=== PATIENT | male | born 1990 | race Caucasian/White ===

== ENCOUNTER 2018-05-05 17:27 | Observation (INO) | payer BC ==
[~2018-05-05] VITALS: Ht 170.2 cm; Wt 107.0 kg
[~2018-05-05 17:27] MED LIST: HYDR-3165 PO; PENI250T85 PO
[2018-05-05] MEDS ORDERED: ASPIRIN 81 MG TAB.CHEW PO ONE (17:45)
--- NOTE | 2018-05-05 17:52 | PHYS DOC ---
Past History Past Medical History: No Pertinent History Past Surgical History: No Surgical History Alcohol Use: None Drug Use: None Adult General Chief Complaint Chief Complaint: CHEST PAIN [facility] HPI Patient is a 27 year old male who presents with chest pain. Patient complaining of intermittent episodes of substernal chest pain for 2 months that usually happens once a day up to twice a week and last for minutes to hours as a sharp pain with radiation to his back and associated with shortness of breath, palpitation, dizziness and left arm numbness without nausea and vomiting, fever and chills, cough and congestion. Patient was seen by his primary care physician today and had order for mild pain test and had prescription of nitro. Patient complaining of another episode of chest pain that started about 30 minutes prior to arrival to ER and rated his pain 7/10. Patient wanted to take his nitroglycerin but his mother instructed to come to emergency room because he did not exact direction of using nitroglycerin. Patient rated his pain 2/10 at arrival to ER. And was diagnosed with hypertension today and chewing tobacco and has family history of CAD and denies using drugs or alcohol. Review of Systems Review of Systems Constitutional: Denies fever or chills [] Eyes: Denies change in visual acuity, redness, or eye pain [] HENT: Denies nasal congestion or sore throat [] Respiratory: Denies cough, reports shortness of breath [] Cardiovascular: No additional information not addressed in HPI [] GI: Denies abdominal pain, nausea, vomiting, bloody stools or diarrhea [] : Denies dysuria or hematuria [] Musculoskeletal: Denies back pain or joint pain [] Integument: Denies rash or skin lesions [] Neurologic: Denies headache, focal weakness or sensory changes [] Endocrine: Denies polyuria or polydipsia [] All other systems were reviewed and found to be within normal limits, except as documented in this note. Physical Exam Physical Exam Constitutional: Well developed, well nourished, mild distress, non-toxic appearance. [] HENT: Normocephalic, atraumatic, oropharynx moist, no oral exudates, nose normal. [] Eyes: PERRLA, EOMI, conjunctiva normal, no discharge. [] Neck: Normal range of motion, no tenderness, supple, no stridor. [] Cardiovascular:Heart rate regular rhythm, no murmur [] Lungs & Thorax: Bilateral breath sounds clear to auscultation [] Abdomen: Bowel sounds normal, soft, no tenderness, no masses, no pulsatile masses. [] Skin: Warm, dry, no erythema, no rash. [] Back: No tenderness, no CVA tenderness. [] Extremities: No tenderness, no cyanosis, no clubbing, ROM intact, no edema. [] Neurologic: Alert and oriented X 3, normal motor function, normal sensory function, no focal deficits noted. [] Psychologic: Affect anxious, judgement normal, mood normal. [] Current Patient Data Vital Signs Vital Signs Date Time Temp Pulse Resp B/P (MAP) Pulse Ox O2 Delivery O2 Flow Rate FiO2 05/05/18 19:10 71 18 123/60 (81) 98 Room Air 05/05/18 18:40 72 20 138/71 (93) 98 Room Air 05/05/18 18:10 82 18 132/72 (92) 98 Room Air 05/05/18 17:27 98.3 85 18 99 Room Air Lab Results Laboratory Tests Test 05/05/18 18:15 05/05/18 18:27 White Blood Count 7.1 x10^3/uL Red Blood Count 5.43 x10^6/uL Hemoglobin 15.9 g/dL Hematocrit 46.7 % Mean Corpuscular Volume 86 fL Mean Corpuscular Hemoglobin 29 pg Mean Corpuscular Hemoglobin Concent 34 g/dL Red Cell Distribution Width 13.7 % Platelet Count 263 x10^3/uL Neutrophils (%) (Auto) 50 % Lymphocytes (%) (Auto) 34 % Monocytes (%) (Auto) 10 % Eosinophils (%) (Auto) 4 % Basophils (%) (Auto) 1 % Neutrophils # (Auto) 3.6 x10^3uL Lymphocytes # (Auto) 2.4 x10^3/uL Monocytes # (Auto) 0.7 x10^3/uL Eosinophils # (Auto) 0.3 x10^3/uL Basophils # (Auto) 0.1 x10^3/uL Sodium Level 140 mmol/L Potassium Level 4.1 mmol/L Chloride Level 100 mmol/L Carbon Dioxide Level 31 mmol/L Anion Gap 9 Blood Urea Nitrogen 13 mg/dL Creatinine 1.0 mg/dL Estimated GFR (Cockcroft-Gault) 91.0 BUN/Creatinine Ratio 13 Glucose Level 91 mg/dL Calcium Level 8.9 mg/dL Magnesium Level 2.1 mg/dL Total Bilirubin 0.4 mg/dL Aspartate Amino Transf (AST/SGOT) 21 U/L Alanine Aminotransferase (ALT/SGPT) 39 U/L Alkaline Phosphatase 80 U/L Creatine Kinase 143 U/L Troponin I Quantitative < 0.017 ng/mL PO-Yve-T-Type Natriuretic Peptide 7 pg/mL Total Protein 7.7 g/dL Albumin 4.3 g/dL Albumin/Globulin Ratio 1.3 Lipase 149 U/L Urine Opiates Screen Neg Urine Methadone Screen Neg Urine Barbiturates Neg Urine Phencyclidine Screen Neg Urine Amphetamine/Methamphetamine Neg Urine Benzodiazepines Screen Neg Urine Cocaine Screen Neg Urine Cannabinoids Screen Neg Urine Ethyl Alcohol Neg Current Medications Medications (Trade) Dose Ordered Sig/Tanya Route PRN Reason Start Time Stop Time Status Last Admin Dose Admin Aspirin (Children'S Aspirin) 324 mg 1X ONCE PO 05/05/18 17:45 05/05/18 17:58 DC 05/05/18 17:47 EKG EKG EKG interpreted by me. EKG at 1742 showed normal sinus rhythm at rate of 81, no acute ST and T-wave abnormalities, poor R-wave progress in anteroseptal leads. Radiology/Procedures Radiology/[place] [address] IMAGING REPORT Signed PATIENT: WING RAMOS ACCOUNT: [id number] : 1990 LOCATION: ER AGE: 27 SEX: M EXAM STATUS: REG ER ORD. PHYSICIAN: OSCAR LARA MD REASON: chest pain PROCEDURE: CHEST PA & LATERAL CHEST PA LATERAL dated 05/05/2018 6:50 PM. Comparison: None. Clinical Indication: CHEST PAIN, NO SOA. RECENTLY DIAGNOSED WITH ARYTHMIA. Findings: PA and lateral views of the chest were obtained. Heart and mediastinal contours within normal limits. Lung volumes are low, limiting evaluation. No consolidation or pleural effusion. No pneumothorax. Impression: No acute radiographic abnormality. Electronically signed by: Wing Sumner MD (05/05/2018 6:14 PM) [facility] DICTATED AND SIGNED BY: WING SUMNER MD DATE: 05/05/181812 CC: SULEMA BURTON MD; GERARDO MENESES MD; OSCAR LARA MD ~ [] Course & Med Decision Making Course & Med Decision Making Pertinent Labs and Imaging studies are pending. The patient in ER showed 27-year-old male patient with history of intermittent episodes of chest pain that presented to ER with another episode of chest pain. Patient was anxious. Exam and EKG was unremarkable. Labs and chest x-ray pending. Patient care transferred to Dr. Meneses at 1800. Addendum [address] Dr[address] Gerardo Meneses at 1954: I took over care of patient at 1800. I followed up with the patient's lab work which was negative. The patient's HEART score is 3. In further questioning, the patient does state that he has been experiencing these episodes during physical activity. Patient also notes that he has had a family member at the age of 33 who has been hospitalized for heart- related problems. I spoke with the patient's primary physician, Dr. Burton, and we have agreed the patient would benefit from admission for continued cardiac monitoring and cardiology consult. Dragon Disclaimer Dragon Disclaimer This electronic medical record was generated, in whole or in part, using a voice recognition dictation system. Departure Departure: Impression: Primary Impression: Chest pain Additional Impression: Hypertension Disposition: ADMITTED INPATIENT Admitting Physician: Sulema Burton Condition: STABLE Referrals: SULEMA BURTON MD (PCP) Problem Qualifiers Primary Impression: Chest pain Chest pain type: unspecified Qualified Codes: R07.9 - Chest pain, unspecified Additional Impression: Hypertension Hypertension type: essential hypertension Qualified Codes: I10 - Essential ( primary) hypertension OSCAR LARA MD May 05, 2018 17:52 GERARDO MENESES MD May 05, 2018 19:56
--- NOTE | 2018-05-05 18:17 | RAD ---
CHEST PA LATERAL dated 05/05/2018 6:50 PM. Comparison: None. Clinical Indication: CHEST PAIN, NO SOA. RECENTLY DIAGNOSED WITH ARYTHMIA. Findings: PA and lateral views of the chest were obtained. Heart and mediastinal contours within normal limits. Lung volumes are low, limiting evaluation. No consolidation or pleural effusion. No pneumothorax. Impression: No acute radiographic abnormality. Electronically signed by: Wing Sumner MD (05/05/2018 6:14 PM) [facility]
[2018-05-05 18:32] LABS: BASO # 0.1 x10^3/uL (0.0-0.2); BASO % 1 % (0-3); EOS # 0.3 x10^3/uL (0.0-0.7); EOS % 4 % (0-3); HEMATOCRIT 46.7 % (39.0-53.0); HEMOGLOBIN 15.9 g/dL (13.0-17.5); LYMPH # 2.4 x10^3/uL (1.0-4.8); LYMPH % 34 % (24-48); MEAN CORPUSCULAR HEMOGLOBIN 29 pg (25-35); MEAN CORPUSCULAR HGB CONC 34 g/dL (31-37); MEAN CORPUSCULAR VOLUME 86 fL (79-100); MONO # 0.7 x10^3/uL (0.0-1.1); MONO % 10 % (0-9); NEUT # 3.6 x10^3uL (1.8-7.7); NEUT % 50 % (31-73); PLATELET COUNT 263 x10^3/uL (140-400); RED BLOOD COUNT 5.43 x10^6/uL (4.30-5.70); RED CELL DISTRIBUTION WIDTH 13.7 % (11.5-14.5); WHITE BLOOD COUNT 7.1 x10^3/uL (4.0-11.0)
[2018-05-05 18:56] LABS: BARBITURATES NEG (NEG); BENZODIAZEPINES NEG (NEG); CANNABINOIDS NEG (NEG); COCAINE NEG (NEG); METHADONE NEG (NEG); OPIATES NEG (NEG); PHENCYCLIDINE NEG (NEG)
[2018-05-05 18:56] LABS: ALBUMIN 4.3 g/dL (3.4-5.0); ALBUMIN/GLOBULIN RATIO 1.3 (1.0-1.7); CALCIUM 8.9 mg/dL (8.5-10.1); MAGNESIUM 2.1 mg/dL (1.8-2.4); POTASSIUM 4.1 mmol/L (3.5-5.1); TOTAL BILIRUBIN 0.4 mg/dL (0.2-1.0); TOTAL PROTEIN 7.7 g/dL (6.4-8.2)
[2018-05-05 18:57] LABS: AMPHETAMINE/METHAMPHETAMINE NEG (NEG)
[2018-05-05] MEDS ORDERED: ONDANSETRON PF 4 MG/2 ML VIAL. IV PRN (20:00)
[2018-05-05] MEDS: IV NORMAL SALINE 1,000ML 1,000 ML IV SCH (21:28)
[2018-05-05] MEDS ORDERED: NITR0.4T22 SL (22:02)
[2018-05-05 22:47] VITALS: BP 145/78
[2018-05-05] MEDS ORDERED: LISI-334 PO (23:28)
[2018-05-06 02:07] LABS: BASO # 0.1 x10^3/uL (0.0-0.2); BASO % 1 % (0-3); EOS # 0.3 x10^3/uL (0.0-0.7); EOS % 5 % (0-3); HEMOGLOBIN 15.4 g/dL (13.0-17.5); LYMPH # 2.8 x10^3/uL (1.0-4.8); LYMPH % 39 % (24-48); MEAN CORPUSCULAR HEMOGLOBIN 30 pg (25-35); MEAN CORPUSCULAR HGB CONC 35 g/dL (31-37); MEAN CORPUSCULAR VOLUME 86 fL (79-100); MONO # 0.6 x10^3/uL (0.0-1.1); MONO % 9 % (0-9); NEUT # 3.4 x10^3uL (1.8-7.7); NEUT % 46 % (31-73); PLATELET COUNT 237 x10^3/uL (140-400); RED BLOOD COUNT 5.11 x10^6/uL (4.30-5.70); RED CELL DISTRIBUTION WIDTH 13.1 % (11.5-14.5); WHITE BLOOD COUNT 7.3 x10^3/uL (4.0-11.0)
[2018-05-06 02:22] LABS: CALCIUM 8.1 mg/dL (8.5-10.1); CREATININE 0.9 mg/dL (0.7-1.3); GFR 102.8; POTASSIUM 3.7 mmol/L (3.5-5.1)
[2018-05-06] MEDS: IV NORMAL SALINE 1,000ML 1,000 ML IV SCH (04:43)
[2018-05-06 05:15] VITALS: BP 122/73
[2018-05-06] MEDS ORDERED: ATOR20TA PO (10:24)
[2018-05-06] MEDS ORDERED: PANT40TA3 PO (10:24)
--- NOTE | 2018-05-06 10:46 | EKG ---
[address] [address] Test Date: 2018-05-05 Test Time: 17:42:31 Pat Name: LYNETTE RAMOS Department: Room: 120 A Gender: M Front Line Leader: : 1990 Requested By: OSCAR LARA Order Number: [id number] Reading MD: Gilbert Balderas MD Measurements Intervals [place] Rate: 81 P: 47 RI: 140 QRS: 11 QRSD: 100 T: 25 QT: 346 QTc: 402 Interpretive Statements SINUS RHYTHM Electronically Signed On 05-07-2018 9:26:43 [employer] T[employer]ER by Gilbert Balderas MD
--- NOTE | 2018-05-06 12:18 | DS ---
DATE OF DISCHARGE: 05/06/2018 HOSPITAL COURSE: The patient is a 27-year-old male who came in with substernal chest pain. The patient says he does get it with exertion at times. The patient otherwise is resting fairly comfortably. His cardiac enzymes were negative. Lab work from his outpatient studies does show that he is slightly possibly hypothyroid as well as having a low HDL, elevated triglycerides and a slightly elevated LDL. He has some other risk factors including family history and alike. The patient will be admitted for further evaluation and was admitted and ruled out MT protocol. The patient is already scheduled for an outpatient protocol. He will be on aspirin, Protonix as well as his lisinopril and nitroglycerin. IMPRESSION: Chest pain, unknown etiology, high risk for heart disease, obesity, hypercholesterolemia, hypertriglyceridemia. The patient also encouraged to stop chewing tobacco. SULEMA BURTON MD DR: SAVANNA/tamara JOB#: [id number] / [id number]
== END 2018-05-06 10:45 | disposition home or self-care (01) ==
LOC: ER 17:27 → INTOOBSV 22:00 → 1 SOUTH 22:00
PROVIDERS: ADMIT Family Medicine; ATTEND Family Medicine
DX: R07.2 Precordial pain (principal); N50.819 Testicular pain, unspecified; I10 Essential (primary) hypertension; R42 Dizziness and giddiness; K92.1 Melena; E66.9 Obesity, unspecified; E78.00 Pure hypercholesterolemia, unspecified; E78.1 Pure hyperglyceridemia; F17.220 Nicotine dependence, chewing tobacco, uncomplicated; Z82.49 Family history of ischemic heart disease and other diseases of the circulatory system
CPT/HCPCS: 36415; 71046; 80048; 80053; 80307; 82550; 83690; 83735; 83880; 84484; 85025; 93005; 96360; 96361; 99285; G0378; G0379; J7030

== ENCOUNTER → 2018-05-07 | Outpatient (CLI) | payer BC ==
[2018-05-06 05:15] VITALS: BP 122/73
[~2018-05-07] MED LIST changes: +ATOR20TA PO; +LISI-334 PO; +NITR0.4T22 SL; +PANT40TA3 PO
--- NOTE | 2018-05-07 16:09 | RAD ---
Scrotal ultrasound History: Left scrotal mass and pain. Comparison: None. Technique: Grayscale, color Doppler, and spectral Doppler imaging was performed of the scrotum and contents. Findings: Right testicle measures 4.8 x 2.7 x 2.1 cm. Left testicle measures 4.7 x 2.9 x 2.3 cm. Both testicles have homogeneous echogenicity and are without evidence of mass. Bilateral epididymides have unremarkable appearance. Left varicocele is seen. Both testicles demonstrate normal vascular flow upon Doppler interrogation and are without evidence of torsion. Impression: 1. Left varicocele. 2. No evidence of testicular mass or torsion. Electronically signed by: Wing Christiansen MD (05/07/2018 4:06 PM) [place] [id number]
== END | disposition home or self-care (01) ==
LOC: US 12:29
PROVIDERS: ATTEND Family Medicine
DX: I86.1 Scrotal varices (principal)
CPT/HCPCS: 76870

== ENCOUNTER 2018-06-21 01:42 | Emergency (ER) | payer BC ==
[~2018-06-21] VITALS: Ht 172.7 cm; Wt 99.8 kg
--- NOTE | 2018-06-21 01:53 | PHYS DOC ---
Past History Past Medical History: Hypertension, IBS Past Surgical History: No Surgical History Alcohol Use: Rarely Drug Use: None Adult General Chief Complaint Chief Complaint: FLU SYMPTOM HPI HPI Patient is a 27 year old male who presents with N/V and flu symptom. Pt reports being diagnosed with influenza A two days ago at [facility]. He reports sore throat, sinus tenderness and pressure, headache, dizziness. Pt also mentions about having N/V and diarrhea which also started two days ago. He was not able to keep food or drink down. Pt also reports having some blood-tinged mucus in his sputum and vomitus. He has tried OTC Tylenol and Mucinex which do not relieve his symptoms. Reports positive sick contacts with similar in his children. Reports daughter was seen in ED at [facility] last night. Review of Systems Review of Systems Constitutional: Endorses fever or chills [] Eyes: Denies redness, or eye pain [] HENT: Endorses nasal congestion and sore throat [] Respiratory: Endorses cough and shortness of breath [] Cardiovascular: Denies chest pain or palpitation GI: Endorses nausea, vomiting; denies diarrhea [] : Denies dysuria or hematuria [] Musculoskeletal: Denies back pain or joint pain [] Integument: Denies rash or skin lesions [] Neurologic: Denies headache, focal weakness or sensory changes [] Complete systems were reviewed and found to be within normal limits, except as documented in this note. Allergies Allergies Allergies Coded Allergies Type Severity Reaction Last Updated Verified No Known Drug Allergies 05/05/18 No Physical Exam Physical Exam Constitutional: Well developed, well nourished, no acute distress, non-toxic appearance. [] HENT: Normocephalic, atraumatic, bilateral TMs normal, oropharynx moist, no pharyngeal exudates, mild erythema of the oropharynx, b/l swollen nasal turbinates. [] Eyes: PERRL, EOMI, conjunctiva normal, no discharge. [] Neck: Normal range of motion, no tenderness, supple, no meningeal signs Cardiovascular: Heart rate regular rhythm, no murmur [] Lungs & Thorax: Bilateral breath sounds clear to auscultation [] Abdomen: Soft, no tenderness, no distention or rigidity Skin: Warm, dry, no erythema, no rash. [] Back: No tenderness, no CVA tenderness. [] Extremities: No tenderness, ROM intact [] Neurologic: Alert and oriented X 3, normal motor function, normal sensory function, no focal deficits noted. [] Psychologic: Affect normal, judgement normal, mood normal. [] EKG EKG [] Radiology/Procedures Radiology/Procedures PROCEDURE: CHEST PA & LATERAL Chest PA and lateral: Reason for examination: Cough. Flu diagnosed 2 days ago. Atrial fibrillation. The heart size is normal. Mediastinum is unremarkable. Lung solano are clear. No acute bony abnormalities are seen. Impression: No acute cardiopulmonary disease. Electronically signed by: Cecily Gutiérrez MD (06/21/2018 2:28 AM) [facility] Course & Med Decision Making Course & Med Decision Making Pertinent Labs and Imaging studies reviewed. (See chart for details) Pt with a 27 yo male with presents with URI symptoms and N/V. He was recently diagnosed with Influenza A. Pt reports unable to keep any fluid down this evening. Abdominal: non-peritoneal (no R/R/T). Labs obtained and posted to chart. CXR without acute process. Symptomatic treatment including IV fluids. Pt reports interval improvement during his ED visit. Patient stable for discharge with outpatient follow-up with PCP. Discussed findings and plan with patient and family, who acknowledge understanding and agreement. Dragon Disclaimer Dragon Disclaimer This electronic medical record was generated, in whole or in part, using a voice recognition dictation system. Departure Departure: Impression: Primary Impression: Nausea & vomiting Additional Impression: Hx of influenza Disposition: 01 HOME, SELF-CARE Condition: STABLE Referrals: SULEMA BURTON MD (PCP) Patient Instructions: Influenza A (H1N1), Nausea and Vomiting, [id number] Additional Instructions: Start with clear liquid diet (dayna milton/sprite/water/chicken broth). Advance to very bland diet (saltine crackers, dry toast, white rice). If diarrhea starts then increase your diet to include foods that naturally form the stool together (BRAT- bananas, rice, applesauce, toast) Scripts Famotidine (PEPCID) 20 Mg Tablet 1 TAB PO BID for Gastritis, #20 TAB 0 Refills Prov: LYNETTE STREET DO 06/21/18 Ondansetron (ONDANSETRON ODT) 4 Mg Tab.rapdis 1 TAB PO PRN Q6-8HRS PRN for NAUSEA, #16 TAB Prov: LYNETTE STREET DO 06/21/18 Problem Qualifiers Primary Impression: Nausea & vomiting Vomiting type: unspecified Vomiting Intractability: non-intractable Qualified Codes: R11.2 - Nausea with vomiting, unspecified LYNETTE STREET DO Jun 21, 2018 01:52
[2018-06-21] MEDS ORDERED: KETOROLAC 15 MG/ML VIAL. ONE (01:57)
[2018-06-21] MEDS ORDERED: KETOROLAC 15 MG/ML VIAL. IV ONE (02:00)
[2018-06-21] MEDS ORDERED: KETOROLAC 30 MG/ML VIAL. IV ONE (02:00)
[2018-06-21] MEDS ORDERED: ONDANSETRON PF 4 MG/2 ML VIAL. IV ONE (02:00)
[2018-06-21] MEDS ORDERED: DEXAMETHASONE SOD PHOS 10 MG/ML VIAL IV ONE (02:00)
[2018-06-21] MEDS ORDERED: IV NORMAL SALINE 1,000ML 1,000 ML IV ONE (02:00)
[2018-06-21] MEDS ORDERED: FAMOTIDINE 20 MG/2 ML VIAL IVP ONE (02:00)
[2018-06-21 02:30] LABS: BASO % 1 % (0-3); EOS % 1 % (0-3); HEMATOCRIT 46.2 % (39.0-53.0); HEMOGLOBIN 16.1 g/dL (13.0-17.5); LYMPH % 39 % (24-48); MEAN CORPUSCULAR HEMOGLOBIN 30 pg (25-35); MEAN CORPUSCULAR HGB CONC 35 g/dL (31-37); MEAN CORPUSCULAR VOLUME 85 fL (79-100); MONO # 0.6 x10^3/uL (0.0-1.1); MONO % 12 % (0-9); NEUT # 2.5 x10^3uL (1.8-7.7); NEUT % 48 % (31-73); PLATELET COUNT 185 x10^3/uL (140-400); RED BLOOD COUNT 5.45 x10^6/uL (4.30-5.70); RED CELL DISTRIBUTION WIDTH 13.1 % (11.5-14.5); WHITE BLOOD COUNT 5.1 x10^3/uL (4.0-11.0)
--- NOTE | 2018-06-21 02:31 | RAD ---
Chest PA and lateral: Reason for examination: Cough. Flu diagnosed 2 days ago. Atrial fibrillation. The heart size is normal. Mediastinum is unremarkable. Lung solano are clear. No acute bony abnormalities are seen. Impression: No acute cardiopulmonary disease. Electronically signed by: Cecily Gutiérrez MD (06/21/2018 2:28 AM) [facility]
[2018-06-21 02:37] LABS: ALBUMIN 4.1 g/dL (3.4-5.0); ALBUMIN/GLOBULIN RATIO 1.1 (1.0-1.7); CALCIUM 8.4 mg/dL (8.5-10.1); CREATININE 1.1 mg/dL (0.7-1.3); GFR 81.6; MAGNESIUM 2.3 mg/dL (1.8-2.4); TOTAL BILIRUBIN 0.5 mg/dL (0.2-1.0); TOTAL PROTEIN 7.7 g/dL (6.4-8.2)
[2018-06-21] MEDS ORDERED: ONDA4TAB12 PO (02:49)
[2018-06-21] MEDS ORDERED: FAMO-63 PO (02:49)
[2018-06-21 03:00] VITALS: BP 126/73
== END 2018-06-21 03:05 | disposition home or self-care (01) ==
LOC: ER 01:42
DX: R11.2 Nausea with vomiting, unspecified (principal); R19.7 Diarrhea, unspecified; R42 Dizziness and giddiness; R51 Headache; J02.9 Acute pharyngitis, unspecified; I10 Essential (primary) hypertension; K58.9 Irritable bowel syndrome, unspecified
CPT/HCPCS: 36415; 71046; 80053; 83690; 83735; 85025; 96361; 96374; 96375; 99284; J1100; J1885; J2405; J3490; J7030

== ENCOUNTER 2019-05-22 00:24 | Emergency (ER) | payer BC, MEDICAID ==
[~2019-05-22] VITALS: Ht 172.7 cm; Wt 105.7 kg
[~2019-05-22 00:24] MED LIST changes: +FAMO-63 PO; +ONDA4TAB12 PO
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
[2019-05-22] MEDS ORDERED: MORPHINE SULFATE 10 MG/ML SYRINGE. SQ ONE (00:45)
[2019-05-22] MEDS ORDERED: IV RINGERS SOLUTION,LACTATED 1,000 ML IV SCH (00:45)
[2019-05-22 00:58] VITALS: BP 135/90
[2019-05-22] MEDS ORDERED: IOHEXOL 300 MG/ML 75 ML VIAL. IV ONE (01:00)
[2019-05-22] MEDS ORDERED: CONTRAST GIVEN MC PRN (01:00)
[2019-05-22 01:16] LABS: BASO # 0.1 x10^3/uL (0.0-0.2); BASO % 1 % (0-3); EOS # 0.1 x10^3/uL (0.0-0.7); EOS % 1 % (0-3); HEMATOCRIT 48.5 % (39.0-53.0); HEMOGLOBIN 16.7 g/dL (13.0-17.5); LYMPH # 2.2 x10^3/uL (1.0-4.8); LYMPH % 29 % (24-48); MEAN CORPUSCULAR HEMOGLOBIN 30 pg (25-35); MEAN CORPUSCULAR HGB CONC 35 g/dL (31-37); MEAN CORPUSCULAR VOLUME 87 fL (79-100); MONO # 0.5 x10^3/uL (0.0-1.1); MONO % 7 % (0-9); NEUT # 4.7 x10^3uL (1.8-7.7); NEUT % 63 % (31-73); PLATELET COUNT 305 x10^3/uL (140-400); RED CELL DISTRIBUTION WIDTH 13.3 % (11.5-14.5); WHITE BLOOD COUNT 7.5 x10^3/uL (4.0-11.0)
[2019-05-22 01:23] LABS: ALBUMIN 4.8 g/dL (3.4-5.0); CALCIUM 9.8 mg/dL (8.5-10.1); CREATININE 1.1 mg/dL (0.7-1.3); DIRECT BILIRUBIN 0.1 mg/dL (0.0-0.2); GFR 80.9; MAGNESIUM 2.2 mg/dL (1.8-2.4); POTASSIUM 3.8 mmol/L (3.5-5.1); TOTAL BILIRUBIN 0.6 mg/dL (0.2-1.0); TOTAL PROTEIN 8.1 g/dL (6.4-8.2)
--- NOTE | 2019-05-22 02:35 | RAD ---
INDICATION: Trauma COMPARISON: None. TECHNIQUE: Axial CT images obtained through the chest, abdomen and pelvis with intravenous contrast. Reformatted images of the thoracic and lumbar spine. One or more of the following individualized dose reduction techniques were utilized for this examination: 1. Automated exposure control; 2. Adjustment of the mA and/or kV according to patient size; 3. Use of iterative reconstruction technique. FINDINGS: Chest: No evidence of pneumothorax. Mild dependent groundglass opacities which could be from atelectasis. Enhancing focus at hepatic dome at right lobe. Could be vascular in nature or secondary to a arterial enhancing lesion. A ascending thoracic aorta obscured by motion but no aneurysm is seen. No evidence of mediastinal hemorrhage. Abdomen and pelvis: Abdominal aorta is not aneurysmal. No perihepatic hemorrhage. No peripancreatic fluid collection. No perisplenic hemorrhage. No perirenal hemorrhage. Prominence of the right extrarenal pelvis. Urinary bladder is partially distended. No dilated loops of bowel suggest obstruction. No periappendiceal inflammatory changes. Lumbar spine: No evidence of acute fracture or dislocation. Thoracic spine: Mild wedging of the T12 vertebral body. There is some mild degenerative changes the spine with osteophyte formation. IMPRESSION: * No evidence of intra-abdominal or intrathoracic hemorrhage. * No definite thoracic or lumbar spine fracture. * Minimal wedge deformity of the T12 vertebral body of unknown age. This could also be degenerative in nature. Correlate with symptoms. Electronically signed by: Carlos Balderas MD (05/22/2019 2:32 AM) [facility]
[2019-05-22 02:38] LABS: BARBITURATES NEG (NEG); BENZODIAZEPINES NEG (NEG); CANNABINOIDS NEG (NEG); COCAINE POS (NEG); METHADONE NEG (NEG); OPIATES NEG (NEG); PHENCYCLIDINE NEG (NEG)
[2019-05-22 02:48] LABS: AMPHETAMINE/METHAMPHETAMINE NEG (NEG)
[2019-05-22] MEDS ORDERED: CYCL-331 PO (02:55)
[2019-05-22] MEDS ORDERED: HYDR-1179 PO (02:55)
[2019-05-22] MEDS ORDERED: ORPHENADRINE CITRATE 60 MG/2 ML VIAL. IV ONE (03:00)
[2019-05-22 03:06] LABS: AMORPHOUS SEDIMENT,UR PRESENT /HPF; BACTERIA,URINE FEW /HPF (0-FEW); BILIRUBIN,URINE NEG (NEG); CLARITY,URINE CLEAR; COLOR,URINE STRAW; GLUCOSE,URINE NEG (NEG); NITRITE,URINE NEG (NEG); RBC,URINE 0 /HPF (0-2); SQUAMOUS EPITHELIAL CELL,UR OCC /LPF; UROBILINOGEN,URINE 0.2 mg/dL (0.2 mg/dL); WBC,URINE 0 /HPF (0-4)
[2019-05-22] MEDS ORDERED: ORPHENADRINE CITRATE 60 MG/2 ML VIAL. IM ONE (03:15)
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
--- NOTE | 2019-05-22 19:06 | EKG ---
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
== END 2019-05-22 03:10 | disposition home or self-care (01) ==
LOC: ER 00:24
DX: S20.222A Contusion of left back wall of thorax, initial encounter (principal); R07.89 Other chest pain; F12.10 Cannabis abuse, uncomplicated; F10.10 Alcohol abuse, uncomplicated; I10 Essential (primary) hypertension; K58.9 Irritable bowel syndrome, unspecified; Y90.2 Blood alcohol level of 40-59 mg/100 ml; Y08.89XA Assault by other specified means, initial encounter; Y93.89 Activity, other specified; Y92.89 Other specified places as the place of occurrence of the external cause; Y99.8 Other external cause status
CPT/HCPCS: 36415; 71045; 71260; 72128; 72131; 74177; 80048; 80076; 80307; 81001; 82550; 83690; 83735; 83880; 84443; 84484; 85025; 85379; 85610; 85730; 93005; 96372; 99285; G0480; J2270; J2360; J7120; Q9967

== ENCOUNTER 2021-03-27 06:56 | Emergency (ER) | payer MEDICAID ==
[~2021-03-27] VITALS: Ht 172.7 cm; Wt 63.0 kg
[~2021-03-27 06:56] MED LIST changes: +CYCL-331 PO; +HYDR-1179 PO; -LISI-334 PO; +LISI20TA18 PO
[2021-03-27 07:21] VITALS: BP 144/92
[2021-03-27] MEDS ORDERED: NEOMY/BACITR/POLYMYXIN OINT PACKET. TP ONE (07:30)
[2021-03-27] MEDS ORDERED: KETOROLAC 30 MG/ML VIAL. IM ONE (07:30)
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
[2021-03-27] MEDS ORDERED: ORPH-16 PO (08:31)
[2021-03-27] MEDS ORDERED: NAPR-695 PO (08:31)
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
== END 2021-03-27 08:43 | disposition home or self-care (01) ==
LOC: ER 06:56
DX: S46.911A Strain of unspecified muscle, fascia and tendon at shoulder and upper arm level, right arm, initial encounter (principal); S43.101A Unspecified dislocation of right acromioclavicular joint, initial encounter; I10 Essential (primary) hypertension; V19.9XXA Pedal cyclist (driver) (passenger) injured in unspecified traffic accident, initial encounter; Y93.89 Activity, other specified; Y92.89 Other specified places as the place of occurrence of the external cause; Y99.8 Other external cause status
CPT/HCPCS: 29105; 73030; 96372; 99283; J1885